=== PATIENT | female | born 1950 | race Caucasian/White ===

== ENCOUNTER 2016-03-24 09:43 | Inpatient (IN) | payer MEDICAID ==
[~2016-03-24] VITALS: Ht 154.9 cm; Wt 79.8 kg
[2016-03-24 09:58] VITALS: BP 149/83; PULSE 89; RESP 16; TEMP 97.8; O2SAT 99
[2016-03-24] MEDS ORDERED: MORPHINE 4 MG/ML INJ. SYRINGE IVP ONE (10:45)
[2016-03-24] MEDS ORDERED: ONDANSETRON HCL 4 MG/2 ML VIAL IVP ONE (10:45)
[2016-03-24] MEDS ORDERED: NACL 0.9% 1,000 ML IV ONE (10:45)
[2016-03-24 10:47] LABS: BASOPHILS # (AUTO) 0.2 K/uL (0.0-0.2); BASOPHILS % (AUTO) 1.5 % (0.0-2.0); EOSINOPHILS # (AUTO) 0.2 K/uL (0.0-0.4); EOSINOPHILS % (AUTO) 1.5 % (0.0-4.0); HEMATOCRIT 38.1 % (36-48); HEMOGLOBIN 12.9 g/dL (12.0-16.0); LYMPHOCYTES # (AUTO) 1.7 K/uL (1.0-5.5); LYMPHOCYTES % (AUTO) 11.1 % (20.5-51.5); MEAN CORPUSCULAR HEMOGLOBIN 29 pg (27-31); MEAN CORPUSCULAR HGB CONC 34 % (32-36); MEAN CORPUSCULAR VOLUME 84 fL (79.0-98.0); MONOCYTES # (AUTO) 0.6 K/uL (0.0-1.0); MONOCYTES % (AUTO) 4.2 % (1.7-9.3); NEUTROPHILS # (AUTO) 12.5 K/uL (1.8-7.7); NEUTROPHILS % (AUTO) 81.7 % (40.0-70.0); PLATELET COUNT (AUTO) 162 K/uL (130-430); RED BLOOD CELL COUNT(AUTO) 4.53 MIL/uL (4.2-6.2); RED CELL DISTRIBUTION WIDTH 12.4 % (9.0-15.0); WHITE BLOOD COUNT (AUTO) 15.2 K/uL (4.8-10.8)
[2016-03-24 10:49] LABS: CALCIUM 9.3 mg/dL (8.4-11.0); CREATININE 1.07 mg/dL (0.55-1.30); POTASSIUM 3.9 mmol/L (3.5-5.1)
[2016-03-24 10:58] LABS: ALBUMIN 3.8 g/dL (3.4-4.8); TOTAL BILIRUBIN 0.3 mg/dL (0.0-1.0); TOTAL PROTEIN, SERUM 8.3 g/dL (6.4-8.3)
[2016-03-24 11:28] LABS: BILIRUBIN,URINE NEGATIVE (NEGATIVE); BLOOD, URINE NEGATIVE (NEGATIVE); CLARITY/URINE HAZY (CLEAR); COLOR,URINE YELLOW (YELLOW); GLUCOSE,URINE 3+ (NEGATIVE); KETONES,URINE NEGATIVE (NEGATIVE); LEUKOCYTE ESTERASE ,URINE TRACE (NEGATIVE); NITRITE, URINE POSITIVE (NEGATIVE); PH,URINE 5.5 (5.0-8.0); PROTEIN URINE NEGATIVE (NEGATIVE); UROBILINOGEN,URINE 0.2 (0.2-1.0)
[2016-03-24 11:47] LABS: BACTERIA,URINE MANY /HPF (None Seen); MUCUS,URINE None Seen /LPF (None Seen); RBC,URINE NONE SEEN /HPF (0-3)
[2016-03-24] MEDS ORDERED: ACETAMINOPHEN 325 MG TABLET PO PRN (13:15)
[2016-03-24 13:28] VITALS: BP 161/104; PULSE 103; RESP 20; TEMP 97.6; O2SAT 99
[2016-03-24] MEDS ORDERED: GLUCOSE 15 GM GEL (in 37.5 GM TUBE) PO PRN ×2 (13:30)
[2016-03-24] MEDS ORDERED: DEXTROSE 50%-WATER 50 ML DISP.SYRIN IVP PRN ×2 (13:30)
[2016-03-24] MEDS ORDERED: LISINOPRIL 20 MG TABLET PO ONE (14:00)
[2016-03-24] MEDS: MORPHINE 4 MG/ML INJ. SYRINGE IVP PRN ×2 (14:23→18:38)
[2016-03-24] MEDS: POTASSIUM CHLORIDE 10 MEQ in NACL 0.9% 1,000 ML IV SCH (14:26)
[2016-03-24] MEDS ORDERED: GLUXR500 PO (14:38)
[2016-03-24] MEDS ORDERED: HUM10VIA7 SUBCUT (14:38)
[2016-03-24] MEDS ORDERED: LISI10TA5 PO (14:38)
[2016-03-24] MEDS ORDERED: ASA81 PO (14:38)
[2016-03-24] MEDS ORDERED: GABA-529 PO (14:38)
[2016-03-24] MEDS ORDERED: LIP40 PO (14:38)
[2016-03-24 14:40] VITALS: BP 161/104; PULSE 106; RESP 20; TEMP 97.7; O2SAT 100
[2016-03-24] MEDS ORDERED: cefTRIAXone 1 GM IVPB PREMIX 50 ML IV ONE (15:00)
[2016-03-24] MEDS: GABAPENTIN 100 MG CAPSULE PO SCH ×2 (15:50→20:27)
[2016-03-24 16:00] VITALS: BP 129/74; PULSE 91; RESP 16; TEMP 97.2; O2SAT 99
[2016-03-24] MEDS: metFORMIN HCL 500 MG TABLET PO SCH (17:09)
[2016-03-24] MEDS: INSULIN REGULAR, HUMAN 100 UNITS/ML, 10 ML VIAL (novoLIN R) SUBCUT PRN ×2 (17:11→20:33)
[2016-03-24 20:25] VITALS: BP 128/73; PULSE 89; RESP 20; TEMP 98.1; O2SAT 91
[2016-03-24] MEDS: SIMVASTATIN 20 MG TABLET PO SCH (20:27)
[2016-03-24] MEDS: DOCUSATE SODIUM 100 MG CAPSULE PO SCH (20:27)
[2016-03-25 00:38] VITALS: BP 131/65; PULSE 84; RESP 18; TEMP 98.6; O2SAT 96
[2016-03-25] MEDS: POTASSIUM CHLORIDE 10 MEQ in NACL 0.9% 1,000 ML IV SCH ×3 (00:42→20:58)
[2016-03-25 04:00] VITALS: BP 126/72; PULSE 82; RESP 18; TEMP 98.7; O2SAT 98
[2016-03-25] MEDS: ONDANSETRON HCL 4 MG/2 ML VIAL IVP PRN ×2 (05:43→17:31)
[2016-03-25] MEDS: INSULIN REGULAR, HUMAN 100 UNITS/ML, 10 ML VIAL (novoLIN R) SUBCUT PRN ×4 (06:07→21:03)
[2016-03-25 06:38] LABS: CALCIUM 8.8 mg/dL (8.4-11.0); CREATININE 0.76 mg/dL (0.55-1.30); POTASSIUM 3.6 mmol/L (3.5-5.1)
[2016-03-25 06:59] LABS: BASOPHILS % (AUTO) 0.2 % (0.0-2.0); EOSINOPHILS # (AUTO) 0.1 K/uL (0.0-0.4); EOSINOPHILS % (AUTO) 1.2 % (0.0-4.0); HEMOGLOBIN 12.1 g/dL (12.0-16.0); LYMPHOCYTES # (AUTO) 2.5 K/uL (1.0-5.5); LYMPHOCYTES % (AUTO) 24.6 % (20.5-51.5); MEAN CORPUSCULAR HEMOGLOBIN 29 pg (27-31); MEAN CORPUSCULAR HGB CONC 35 % (32-36); MEAN CORPUSCULAR VOLUME 85 fL (79.0-98.0); MONOCYTES # (AUTO) 0.9 K/uL (0.0-1.0); MONOCYTES % (AUTO) 8.5 % (1.7-9.3); NEUTROPHILS # (AUTO) 6.6 K/uL (1.8-7.7); NEUTROPHILS % (AUTO) 65.5 % (40.0-70.0); PLATELET COUNT (AUTO) 158 K/uL (130-430); RED BLOOD CELL COUNT(AUTO) 4.13 MIL/uL (4.2-6.2); RED CELL DISTRIBUTION WIDTH 12.8 % (9.0-15.0); WHITE BLOOD COUNT (AUTO) 10.1 K/uL (4.8-10.8)
[2016-03-25] MEDS: metFORMIN HCL 500 MG TABLET PO SCH ×2 (08:41→17:07)
[2016-03-25] MEDS: GABAPENTIN 100 MG CAPSULE PO SCH ×3 (08:42→20:59)
[2016-03-25] MEDS: LISINOPRIL 20 MG TABLET PO SCH (08:42)
[2016-03-25] MEDS: DOCUSATE SODIUM 100 MG CAPSULE PO SCH ×2 (08:42→20:59)
[2016-03-25] MEDS: cefTRIAXone 1 GM IVPB PREMIX 50 ML IV SCH (09:36)
[2016-03-25 12:00] VITALS: BP 142/85; PULSE 89; RESP 16; TEMP 97.1; O2SAT 99
[2016-03-25 16:00] VITALS: BP 138/106; PULSE 85; RESP 16; TEMP 97.8; O2SAT 97
[2016-03-25] MEDS: MORPHINE 4 MG/ML INJ. SYRINGE IVP PRN (17:26)
[2016-03-25 20:00] VITALS: BP 135/96; PULSE 90; RESP 16; TEMP 97.5; O2SAT 95
[2016-03-25] MEDS: SIMVASTATIN 20 MG TABLET PO SCH (20:59)
[2016-03-26 00:11] VITALS: BP 140/80; PULSE 86; RESP 17; TEMP 98.7; O2SAT 98
[2016-03-26] MEDS: MORPHINE 4 MG/ML INJ. SYRINGE IVP PRN (06:19)
[2016-03-26] MEDS: POTASSIUM CHLORIDE 10 MEQ in NACL 0.9% 1,000 ML IV SCH (06:20)
[2016-03-26 06:42] VITALS: BP 135/76; PULSE 78; RESP 16; TEMP 97.6; O2SAT 98
[2016-03-26 08:00] VITALS: BP 140/87; PULSE 87; RESP 16; TEMP 98; O2SAT 98
[2016-03-26] MEDS: DOCUSATE SODIUM 100 MG CAPSULE PO SCH (09:30)
[2016-03-26] MEDS: cefTRIAXone 1 GM IVPB PREMIX 50 ML IV SCH (09:31)
[2016-03-26] MEDS: GABAPENTIN 100 MG CAPSULE PO SCH (09:31)
[2016-03-26] MEDS: metFORMIN HCL 500 MG TABLET PO SCH (09:31)
[2016-03-26] MEDS: LISINOPRIL 20 MG TABLET PO SCH (09:32)
[2016-03-26] MEDS: INSULIN REGULAR, HUMAN 100 UNITS/ML, 10 ML VIAL (novoLIN R) SUBCUT PRN (11:49)
[2016-03-26] MEDS ORDERED: HUM10VIA7 SUBCUT (13:07)
[2016-03-26 14:35] VITALS: Ht 154.9 cm; Wt 79.8 kg
[2016-03-26 14:43] VITALS: BP 135/80; PULSE 85; RESP 18; TEMP 96.5; O2SAT 99
== END 2016-03-26 15:30 | disposition home or self-care (01) | DRG 720 ==
LOC: SED 09:43 → SMU 12:43
PROVIDERS: ADMIT Internal Medicine; ATTEND Internal Medicine
DX: A41.9 Sepsis, unspecified organism (principal); E11.00 Type 2 diabetes mellitus with hyperosmolarity without nonketotic hyperglycemic-hyperosmolar coma (NKHHC); E11.40 Type 2 diabetes mellitus with diabetic neuropathy, unspecified; E87.1 Hypo-osmolality and hyponatremia; N39.0 Urinary tract infection, site not specified; I10 Essential (primary) hypertension; E78.5 Hyperlipidemia, unspecified; M19.90 Unspecified osteoarthritis, unspecified site; Z79.4 Long term (current) use of insulin; Z91.14 Patient's other noncompliance with medication regimen
CPT/HCPCS: 36415; 71010; 72040-TC; 76770; 80048; 80053; 81000-TC; 82962; 83036; 85025; 87086; 87186-TC; 96361; 96374; 96375; 97116-GP; 99285; J0696; J1815; J2270; J2405; J3480; J7030

== ENCOUNTER 2016-12-19 13:41 | Inpatient (IN) | payer MEDICAID ==
[~2016-12-19] VITALS: Ht 154.9 cm; Wt 73.0 kg
[2016-12-19 13:41] VITALS: BP_SYST 101
[~2016-12-19 13:41] MED LIST: ASA81 PO; GABA-529 PO; GLUXR500 PO; HUM10VIA7 SUBCUT; LIP40 PO; LISI10TA5 PO
[2016-12-19 15:35] LABS: BASOPHILS # (AUTO) 0.1 K/uL (0.0-0.2); BASOPHILS % (AUTO) 0.4 % (0.0-2.0); EOSINOPHILS # (AUTO) 0.1 K/uL (0.0-0.4); EOSINOPHILS % (AUTO) 0.6 % (0.0-4.0); HEMATOCRIT 36.5 % (36-48); HEMOGLOBIN 12.4 g/dL (12.0-16.0); LYMPHOCYTES # (AUTO) 2.4 K/uL (1.0-5.5); LYMPHOCYTES % (AUTO) 13.5 % (20.5-51.5); MEAN CORPUSCULAR HEMOGLOBIN 29 pg (27-31); MEAN CORPUSCULAR HGB CONC 34 % (32-36); MEAN CORPUSCULAR VOLUME 86 fL (79.0-98.0); MONOCYTES % (AUTO) 5.6 % (1.7-9.3); NEUTROPHILS # (AUTO) 14.3 K/uL (1.8-7.7); NEUTROPHILS % (AUTO) 79.9 % (40.0-70.0); RED BLOOD CELL COUNT(AUTO) 4.26 MIL/uL (4.2-6.2); RED CELL DISTRIBUTION WIDTH 12.2 % (9.0-15.0); WHITE BLOOD COUNT (AUTO) 17.9 K/uL (4.8-10.8)
[2016-12-19 15:53] LABS: CALCIUM 9.4 mg/dL (8.4-11.0); CREATININE 1.15 mg/dL (0.55-1.30); POTASSIUM 3.9 mmol/L (3.5-5.1); PROTHROMBIN TIME 10.5 SECS (9.5-12.5)
[2016-12-19 15:58] LABS: ALBUMIN 3.4 g/dL (3.4-4.8); TOTAL BILIRUBIN 0.6 mg/dL (0.0-1.0)
[2016-12-19 16:20] LABS: PLATELET COUNT (AUTO) 150 K/uL (130-430)
[2016-12-19 17:50] VITALS: BP_SYST 123
[2016-12-19] MEDS ORDERED: MAGNESIUM SULFATE 50 ML IV PRN (19:15)
[2016-12-19] MEDS ORDERED: MORPHINE 2 MG/ML INJ. SYRINGE IVP PRN ×2 (19:15)
[2016-12-19] MEDS ORDERED: ACETAMINOPHEN 325 MG TABLET PO PRN (19:15)
[2016-12-19] MEDS ORDERED: ONDANSETRON HCL 4 MG/2 ML VIAL IVP PRN (19:15)
[2016-12-19] MEDS ORDERED: DEXTROSE 50% JECT 50 ML DISP.SYRIN IVP PRN (19:15)
[2016-12-19] MEDS ORDERED: DOCUSATE SODIUM 100 MG CAPSULE PO PRN (19:15)
[2016-12-19] MEDS ORDERED: LORazepam 2 MG/ML VIAL IVP PRN (19:15)
[2016-12-19] MEDS ORDERED: POTASSIUM CHLORIDE 20 MEQ TAB.PRT.SR PO PRN (19:15)
[2016-12-19 19:40] VITALS: BP_SYST 128
[2016-12-19] MEDS: D5NS 1,000 ML IV SCH (21:02)
[2016-12-19] MEDS: GABAPENTIN 100 MG CAPSULE PO SCH (21:02)
[2016-12-19] MEDS: INSULIN ASPART 100 UNITS/ML, 10 ML VIAL (NovoLOG) SUBCUT PRN (21:06)
[2016-12-19] MEDS: ZOLPIDEM TARTRATE 5 MG TABLET PO PRN (22:43)
[2016-12-20] VITALS: BP_SYST 111
[2016-12-20] MEDS: D5NS 1,000 ML IV SCH ×2 (06:00→19:36)
[2016-12-20] MEDS: INSULIN ASPART 100 UNITS/ML, 10 ML VIAL (NovoLOG) SUBCUT PRN ×3 (06:13→21:37)
[2016-12-20 06:38] LABS: BILIRUBIN,URINE NEGATIVE (NEGATIVE); BLOOD, URINE NEGATIVE (NEGATIVE); CLARITY/URINE SL HAZY (CLEAR); COLOR,URINE YELLOW (YELLOW); GLUCOSE,URINE TRACE (NEGATIVE); KETONES,URINE NEGATIVE (NEGATIVE); LEUKOCYTE ESTERASE ,URINE 2+ (NEGATIVE); NITRITE, URINE NEGATIVE (NEGATIVE); PH,URINE 6.5 (5.0-8.0); PROTEIN URINE 1+ (NEGATIVE)
[2016-12-20 07:05] LABS: RBC,URINE 0-3 /HPF (0-3)
[2016-12-20 07:06] LABS: BACTERIA,URINE MODERATE /HPF (None Seen); MUCUS,URINE 1+ /LPF (None Seen)
[2016-12-20 07:30] LABS: BASOPHILS % (AUTO) 0.2 % (0.0-2.0); EOSINOPHILS # (AUTO) 0.2 K/uL (0.0-0.4); EOSINOPHILS % (AUTO) 1.2 % (0.0-4.0); HEMATOCRIT 33.3 % (36-48); HEMOGLOBIN 11.4 g/dL (12.0-16.0); LYMPHOCYTES # (AUTO) 2.9 K/uL (1.0-5.5); LYMPHOCYTES % (AUTO) 22.5 % (20.5-51.5); MEAN CORPUSCULAR HEMOGLOBIN 29 pg (27-31); MEAN CORPUSCULAR HGB CONC 34 % (32-36); MEAN CORPUSCULAR VOLUME 86 fL (79.0-98.0); MONOCYTES # (AUTO) 0.8 K/uL (0.0-1.0); MONOCYTES % (AUTO) 6.3 % (1.7-9.3); NEUTROPHILS % (AUTO) 69.8 % (40.0-70.0); PLATELET COUNT (AUTO) 127 K/uL (130-430); RED BLOOD CELL COUNT(AUTO) 3.89 MIL/uL (4.2-6.2); WHITE BLOOD COUNT (AUTO) 12.9 K/uL (4.8-10.8)
[2016-12-20 07:51] LABS: CALCIUM 8.8 mg/dL (8.4-11.0); CREATININE 0.89 mg/dL (0.55-1.30); POTASSIUM 3.4 mmol/L (3.5-5.1)
[2016-12-20 08:00] VITALS: BP_SYST 123
[2016-12-20] MEDS: LISINOPRIL 10 MG TABLET (PRINIVIL) PO SCH (08:37)
[2016-12-20] MEDS: PANTOPRAZOLE SODIUM 40 MG/VIAL (PROTONIX) IVP SCH (08:38)
[2016-12-20] MEDS: GABAPENTIN 100 MG CAPSULE PO SCH ×2 (08:38→21:28)
[2016-12-20] MEDS ORDERED: MIDAZOLAM HCL 5 MG/5 ML VIAL ONE (09:38)
[2016-12-20] MEDS: MIDAZOLAM HCL 5 MG/5 ML VIAL ONE ×5 (09:51→11:29)
[2016-12-20] MEDS: MEPERIDINE HCL/PF 100 MG/ML AMP ONE ×3 (09:52→11:21)
[2016-12-20 12:30] VITALS: BP_SYST 114
[2016-12-20 16:29] VITALS: BP_SYST 126
[2016-12-20] MEDS ORDERED: BISACODYL 5 MG TABLET.DR (DULCOLAX) PO ONE (17:00)
[2016-12-20] MEDS ORDERED: GOLYTELY / COLYTE SOLUTION 4 LITERS PO ONE (18:00)
[2016-12-20 20:01] VITALS: BP_SYST 120
[2016-12-20] MEDS: ZOLPIDEM TARTRATE 5 MG TABLET PO PRN (23:08)
[2016-12-20 23:40] VITALS: BP_SYST 120
[2016-12-21 03:35] VITALS: BP_SYST 137
[2016-12-21] MEDS: D5NS 1,000 ML IV SCH ×2 (05:17→19:30)
[2016-12-21] MEDS: INSULIN ASPART 100 UNITS/ML, 10 ML VIAL (NovoLOG) SUBCUT PRN ×4 (05:56→20:19)
[2016-12-21 07:22] LABS: CALCIUM 8.8 mg/dL (8.4-11.0); CREATININE 0.83 mg/dL (0.55-1.30); POTASSIUM 3.9 mmol/L (3.5-5.1)
[2016-12-21 07:32] LABS: PROTHROMBIN TIME 10.4 SECS (9.5-12.5)
[2016-12-21 07:38] LABS: BASOPHILS % (AUTO) 0.2 % (0.0-2.0); EOSINOPHILS # (AUTO) 0.3 K/uL (0.0-0.4); EOSINOPHILS % (AUTO) 2.2 % (0.0-4.0); HEMATOCRIT 31.6 % (36-48); HEMOGLOBIN 10.6 g/dL (12.0-16.0); LYMPHOCYTES # (AUTO) 2.7 K/uL (1.0-5.5); LYMPHOCYTES % (AUTO) 21.5 % (20.5-51.5); MEAN CORPUSCULAR HEMOGLOBIN 29 pg (27-31); MEAN CORPUSCULAR HGB CONC 34 % (32-36); MEAN CORPUSCULAR VOLUME 87 fL (79.0-98.0); MONOCYTES # (AUTO) 0.8 K/uL (0.0-1.0); MONOCYTES % (AUTO) 6.3 % (1.7-9.3); NEUTROPHILS # (AUTO) 8.7 K/uL (1.8-7.7); NEUTROPHILS % (AUTO) 69.8 % (40.0-70.0); PLATELET COUNT (AUTO) 124 K/uL (130-430); RED BLOOD CELL COUNT(AUTO) 3.65 MIL/uL (4.2-6.2); RED CELL DISTRIBUTION WIDTH 12.1 % (9.0-15.0); WHITE BLOOD COUNT (AUTO) 12.5 K/uL (4.8-10.8)
[2016-12-21 08:00] VITALS: BP_SYST 133
[2016-12-21] MEDS ORDERED: SIMETHICONE 40 MG/0.6 ML ML ONE (08:00)
[2016-12-21] MEDS: MEPERIDINE HCL/PF 100 MG/ML AMP ONE ×2 (08:02→08:23)
[2016-12-21] MEDS: MIDAZOLAM HCL 5 MG/5 ML VIAL ONE ×3 (08:03→08:38)
[2016-12-21] MEDS: metroNIDAZOLE 500 mg/NS 100 ML IV SCH ×3 (10:00→22:10)
[2016-12-21] MEDS ORDERED: LEVOFLOXACIN 500 MG/D5W 100 ML IV SCH (10:00)
[2016-12-21] MEDS: PANTOPRAZOLE SODIUM 40 MG/VIAL (PROTONIX) IVP SCH (10:03)
[2016-12-21] MEDS: GABAPENTIN 100 MG CAPSULE PO SCH ×2 (10:03→20:15)
[2016-12-21] MEDS: LISINOPRIL 10 MG TABLET (PRINIVIL) PO SCH (10:04)
[2016-12-21 12:27] VITALS: BP_SYST 126
[2016-12-21 16:53] VITALS: BP_SYST 121
[2016-12-21] MEDS: metFORMIN HCL 500 MG TABLET PO SCH (18:20)
[2016-12-21 20:00] VITALS: BP_SYST 129
[2016-12-21] MEDS: ZOLPIDEM TARTRATE 5 MG TABLET PO PRN (20:15)
[2016-12-21 23:41] VITALS: BP_SYST 140
[2016-12-22 03:50] VITALS: BP_SYST 121
[2016-12-22] MEDS: metroNIDAZOLE 500 mg/NS 100 ML IV SCH (05:05)
[2016-12-22] MEDS: INSULIN ASPART 100 UNITS/ML, 10 ML VIAL (NovoLOG) SUBCUT PRN (06:14)
[2016-12-22 07:00] LABS: BASOPHILS % (AUTO) 0.3 % (0.0-2.0); EOSINOPHILS # (AUTO) 0.4 K/uL (0.0-0.4); EOSINOPHILS % (AUTO) 3.4 % (0.0-4.0); HEMATOCRIT 31.4 % (36-48); HEMOGLOBIN 10.2 g/dL (12.0-16.0); LYMPHOCYTES # (AUTO) 2.7 K/uL (1.0-5.5); LYMPHOCYTES % (AUTO) 25.9 % (20.5-51.5); MEAN CORPUSCULAR HEMOGLOBIN 28 pg (27-31); MEAN CORPUSCULAR HGB CONC 32 % (32-36); MEAN CORPUSCULAR VOLUME 86 fL (79.0-98.0); MONOCYTES # (AUTO) 0.6 K/uL (0.0-1.0); MONOCYTES % (AUTO) 5.9 % (1.7-9.3); NEUTROPHILS # (AUTO) 6.9 K/uL (1.8-7.7); NEUTROPHILS % (AUTO) 64.5 % (40.0-70.0); PLATELET COUNT (AUTO) 126 K/uL (130-430); RED BLOOD CELL COUNT(AUTO) 3.65 MIL/uL (4.2-6.2); RED CELL DISTRIBUTION WIDTH 12.2 % (9.0-15.0); WHITE BLOOD COUNT (AUTO) 10.6 K/uL (4.8-10.8)
[2016-12-22 07:35] VITALS: BP_SYST 129
[2016-12-22 07:38] LABS: CREATININE 0.72 mg/dL (0.55-1.30); POTASSIUM 3.5 mmol/L (3.5-5.1)
[2016-12-22] MEDS ORDERED: METR500T PO (09:31)
[2016-12-22] MEDS ORDERED: LEVO500T20 PO (09:31)
[2016-12-22] MEDS: PANTOPRAZOLE SODIUM 40 MG/VIAL (PROTONIX) IVP SCH (10:25)
[2016-12-22] MEDS: metFORMIN HCL 500 MG TABLET PO SCH (10:28)
[2016-12-22] MEDS: GABAPENTIN 100 MG CAPSULE PO SCH (10:28)
[2016-12-22] MEDS: LISINOPRIL 10 MG TABLET (PRINIVIL) PO SCH (10:28)
[2016-12-22 11:22] VITALS: BP_SYST 129
[2016-12-22 11:27] VITALS: BP_SYST 138
== END 2016-12-22 11:50 | disposition home or self-care (01) | DRG 720 ==
LOC: SED 13:41 → SMU 17:23
PROVIDERS: ADMIT General Practice; ATTEND General Practice
PROC: 0DB78ZX Excision of Stomach, Pylorus, Via Natural or Artificial Opening Endoscopic, Diagnostic (ICD-10-PCS; 2016-12-20)
PROC: 0DBL8ZX Excision of Transverse Colon, Via Natural or Artificial Opening Endoscopic, Diagnostic (ICD-10-PCS; principal; 2016-12-20 11:00)
DX: A41.9 Sepsis, unspecified organism (principal); K63.3 Ulcer of intestine; K25.4 Chronic or unspecified gastric ulcer with hemorrhage; E87.1 Hypo-osmolality and hyponatremia; E11.65 Type 2 diabetes mellitus with hyperglycemia; F12.20 Cannabis dependence, uncomplicated; K29.70 Gastritis, unspecified, without bleeding; D12.3 Benign neoplasm of transverse colon; E78.5 Hyperlipidemia, unspecified; I10 Essential (primary) hypertension; T39.395A Adverse effect of other nonsteroidal anti-inflammatory drugs [NSAID], initial encounter; K52.9 Noninfective gastroenteritis and colitis, unspecified; E66.9 Obesity, unspecified; K64.9 Unspecified hemorrhoids; K57.90 Diverticulosis of intestine, part unspecified, without perforation or abscess without bleeding; M19.90 Unspecified osteoarthritis, unspecified site; Z79.4 Long term (current) use of insulin; Z87.891 Personal history of nicotine dependence; Z71.51 Drug abuse counseling and surveillance of drug abuser; Z90.710 Acquired absence of both cervix and uterus; Z79.82 Long term (current) use of aspirin; Z79.899 Other long term (current) drug therapy
CPT/HCPCS: 36415; 43239; 45380; 71010; 80048; 80053; 81000-TC; 82962; 83735-TC; 85025; 85610-TC; 85730-TC; 86886; 86900; 86901; 87081; 87177; 88305; 88312; 88313; 93005; 99285; C9113; J1815; J1956; J2175; J2250; J2405; J3490; J7042

== ENCOUNTER 2018-08-17 09:08 | Emergency (ER) | payer MEDICAID, OTHER ==
[~2018-08-17] VITALS: Ht 154.9 cm; Wt 72.6 kg
[~2018-08-17 09:08] MED LIST changes: -ASA81 PO; +LEVO500T20 PO; +METR500T PO
[2018-08-17 09:15] VITALS: BP_SYST 138
--- NOTE | 2018-08-17 09:19 | NUR ---
ambulated to bed 3
--- NOTE | 2018-08-17 09:41 | NUR ---
Patient in bed with c/o of flank pain that started yesterday. Patient reported vomitting this morning. Patient pain level 7/10. Patient in no signs of acute distress @ this time. Accompanied by family member.
--- NOTE | 2018-08-17 09:42 | NUR ---
Dr. Chauhan @ bedside for examination.
[2018-08-17] MEDS ORDERED: KETOROLAC TROMETHAMINE 30 MG VIAL IVP ONE (09:45)
[2018-08-17 09:55] LABS: BILIRUBIN,URINE NEGATIVE (NEGATIVE); BLOOD, URINE NEGATIVE (NEGATIVE); CLARITY/URINE CLEAR (CLEAR); COLOR,URINE YELLOW (YELLOW); GLUCOSE,URINE NEGATIVE (NEGATIVE); KETONES,URINE NEGATIVE (NEGATIVE); LEUKOCYTE ESTERASE ,URINE 1+ (NEGATIVE); NITRITE, URINE POSITIVE (NEGATIVE); PROTEIN URINE NEGATIVE (NEGATIVE); UROBILINOGEN,URINE 0.2 (0.2-1.0)
[2018-08-17 09:57] LABS: BASOPHILS % (AUTO) 0.3 % (0.0-2.0); EOSINOPHILS # (AUTO) 0.3 K/uL (0.0-0.4); EOSINOPHILS % (AUTO) 2.6 % (0.0-4.0); HEMATOCRIT 37.7 % (36-48); HEMOGLOBIN 12.8 g/dL (12.0-16.0); LYMPHOCYTES # (AUTO) 1.8 K/uL (1.0-5.5); MEAN CORPUSCULAR HEMOGLOBIN 30 pg (27-31); MEAN CORPUSCULAR HGB CONC 34 % (32-36); MEAN CORPUSCULAR VOLUME 89 fL (79.0-98.0); MONOCYTES # (AUTO) 0.8 K/uL (0.0-1.0); MONOCYTES % (AUTO) 6.2 % (1.7-9.3); NEUTROPHILS # (AUTO) 9.8 K/uL (1.8-7.7); NEUTROPHILS % (AUTO) 76.9 % (40.0-70.0); PLATELET COUNT (AUTO) 159 K/uL (130-430); RED BLOOD CELL COUNT(AUTO) 4.24 MIL/uL (4.2-6.2); RED CELL DISTRIBUTION WIDTH 12.7 % (9.0-15.0); WHITE BLOOD COUNT (AUTO) 12.7 K/uL (4.8-10.8)
[2018-08-17 09:58] LABS: BACTERIA,URINE MANY /HPF (None Seen); WBC,URINE 20-50 /HPF (0-3)
[2018-08-17 10:01] LABS: CALCIUM 9.8 mg/dL (8.4-11.0); POTASSIUM 4.2 mmol/L (3.5-5.1)
[2018-08-17 10:05] LABS: ALBUMIN 2.6 g/dL (3.4-4.8); TOTAL BILIRUBIN 0.7 mg/dL (0.0-1.0)
--- NOTE | 2018-08-17 10:30 | NUR ---
Patient reported pain level tolerable @ this time. Daughter @ bedside.
[2018-08-17] MEDS ORDERED: cefTRIAXone 1 GM IVPB PREMIX 50 ML IV ONE (11:00)
[2018-08-17 11:42] VITALS: BP_SYST 138
--- NOTE | 2018-08-17 11:42 | NUR ---
Patient given written and verbal discharge instructions and verbalizes understanding. ER MD discussed with patient the results and treatment provided. Patient in stable condition. ID arm band removed. IV catheter removed intact and dressing applied, no active bleeding. Patient educated on pain management and to follow up with PMD. Pain Scale 0/10.Opportunity for questions provided and answered. Medication side effect fact sheet provided.
--- NOTE | 2018-08-17 11:45 | NUR ---
Radha JIN started @ 1111 by MIGUEL completed infusion @ 1145 on 08/17/2018 Addendum: 09/02/18 at 1526 by [email or web address] Completed infusing at 1141
== END 2018-08-17 11:42 | disposition home or self-care (01) ==
LOC: SED 09:08
DX: N30.90 Cystitis, unspecified without hematuria (principal); E11.9 Type 2 diabetes mellitus without complications; I10 Essential (primary) hypertension; Z90.710 Acquired absence of both cervix and uterus; Z79.899 Other long term (current) drug therapy
CPT/HCPCS: 36415; 74176; 80053; 81000; 83605; 85025; 87040; 87086; 87186; 96365; 96375; 99284; J0696; J1885; J7040

== ENCOUNTER 2019-06-23 20:33 | Emergency (ER) | payer OTHER, MEDICAID ==
[~2019-06-23] VITALS: Ht 154.9 cm; Wt 81.6 kg
[2019-06-23 20:38] VITALS: BP_SYST 112
[2019-06-23] MEDS ORDERED: NACL 0.9% 1,000 ML IV ONE (20:59)
[2019-06-23] MEDS ORDERED: ONDANSETRON HCL 4 MG/2 ML VIAL IVP ONE (21:00)
[2019-06-23] MEDS ORDERED: MORPHINE 4 MG/ML INJ. SYRINGE IVP ONE (21:00)
[2019-06-23 21:26] LABS: BASOPHILS % (AUTO) 0.2 % (0.0-2.0); EOSINOPHILS # (AUTO) 0.2 K/uL (0.0-0.4); EOSINOPHILS % (AUTO) 2.1 % (0.0-4.0); HEMATOCRIT 33.9 % (36-48); HEMOGLOBIN 11.7 g/dL (12.0-16.0); LYMPHOCYTES # (AUTO) 2.3 K/uL (1.0-5.5); LYMPHOCYTES % (AUTO) 25.1 % (20.5-51.5); MEAN CORPUSCULAR HEMOGLOBIN 31 pg (27-31); MEAN CORPUSCULAR HGB CONC 35 % (32-36); MEAN CORPUSCULAR VOLUME 89 fL (79.0-98.0); MONOCYTES # (AUTO) 0.8 K/uL (0.0-1.0); MONOCYTES % (AUTO) 8.7 % (1.7-9.3); NEUTROPHILS # (AUTO) 5.8 K/uL (1.8-7.7); NEUTROPHILS % (AUTO) 63.9 % (40.0-70.0); PLATELET COUNT (AUTO) 181 K/uL (130-430); RED CELL DISTRIBUTION WIDTH 12.7 % (9.0-15.0); WHITE BLOOD COUNT (AUTO) 9.1 K/uL (4.8-10.8)
[2019-06-23 21:34] LABS: CALCIUM 8.1 mg/dL (8.4-11.0); CREATININE 1.3 mg/dL (0.55-1.30); POTASSIUM 3.6 mmol/L (3.5-5.1)
[2019-06-23 21:40] LABS: ALBUMIN 3.5 g/dL (3.4-4.8); TOTAL BILIRUBIN 0.4 mg/dL (0.0-1.0)
[2019-06-23 21:57] LABS: BILIRUBIN,URINE NEGATIVE (NEGATIVE); BLOOD, URINE NEGATIVE (NEGATIVE); COLOR,URINE YELLOW (YELLOW); GLUCOSE,URINE NEGATIVE (NEGATIVE); KETONES,URINE NEGATIVE (NEGATIVE); LEUKOCYTE ESTERASE ,URINE TRACE (NEGATIVE); NITRITE, URINE NEGATIVE (NEGATIVE); PROTEIN URINE TRACE (NEGATIVE); UROBILINOGEN,URINE 0.2 (0.2-1.0)
[2019-06-23 21:59] LABS: PROTHROMBIN TIME 10.4 SECS (9.5-12.5)
[2019-06-23 22:04] LABS: CLARITY/URINE HAZY (CLEAR)
[2019-06-23 22:11] LABS: BACTERIA,URINE FEW /HPF (None Seen); RBC,URINE 0-3 /HPF (0-3)
[2019-06-23] MEDS ORDERED: INSU10VI4 SUBCUT (22:47)
[2019-06-23] MEDS ORDERED: CIPR-260 PO (22:47)
[2019-06-23] MEDS ORDERED: ASPI-524 PO (22:47)
[2019-06-23] MEDS ORDERED: METR500T PO (22:47)
[2019-06-23 23:43] VITALS: BP_SYST 132
== END 2019-06-23 23:44 | disposition home or self-care (01) ==
LOC: SED 20:33
DX: M47.9 Spondylosis, unspecified (principal); M54.6 Pain in thoracic spine; F12.90 Cannabis use, unspecified, uncomplicated; E78.5 Hyperlipidemia, unspecified; G47.00 Insomnia, unspecified; I10 Essential (primary) hypertension; E11.9 Type 2 diabetes mellitus without complications; Z90.710 Acquired absence of both cervix and uterus; Z79.899 Other long term (current) drug therapy; Z79.82 Long term (current) use of aspirin
CPT/HCPCS: 36415; 71045; 74176; 81000; 80053; 82150; 82550; 83605; 83690; 83880; 84484; 85025; 85610; 85730; 87040; 87086; 93005; 96374; 96375; 99285; J2270; J2405; J7030

== ENCOUNTER 2019-06-29 07:50 | Emergency (ER) | payer OTHER, MEDICAID ==
[~2019-06-29] VITALS: Ht 154.9 cm; Wt 77.1 kg
[2019-06-29 07:50] VITALS: BP_SYST 126
[~2019-06-29 07:50] MED LIST changes: +ASPI-524 PO; +CIPR-260 PO; -HUM10VIA7 SUBCUT; +INSU10VI4 SUBCUT; -LEVO500T20 PO
[2019-06-29 08:20] VITALS: BP_SYST 126
== END 2019-06-29 08:20 | disposition home or self-care (01) ==
LOC: SED 07:50
DX: M54.5 Low back pain (principal); I10 Essential (primary) hypertension; E11.9 Type 2 diabetes mellitus without complications; Z79.84 Long term (current) use of oral hypoglycemic drugs; Z79.899 Other long term (current) drug therapy
CPT/HCPCS: 99283